=== PATIENT | male | born 2000 | race Caucasian/White ===

== ENCOUNTER 2024-11-23 00:24 | Emergency (ER) | payer SELFPAY ==
[2024-11-23] MEDS ORDERED: NA CHLORIDE 0.9% 1,000 ML ONE (01:05)
[2024-11-23] MEDS ORDERED: LORAZEPAM 1 MG TABLET ONE (01:07)
[2024-11-23 01:14] LABS: Absolute Lymphocytes (CBC) 2.0 K/uL (0.7-4.9); Hematocrit 50.6 % (39.6-49.0); Hemoglobin 17.5 g/dL (13.6-17.9); MCH 30.0 pg (27.0-35.0); MCHC 34.7 g/dL (32.0-36.0); MCV 86.5 fL (80-100); MPV 8.8 fL (7.6-11.3); Nucleated RBC Absolute Count 0.1 (0-0); Nucleated Red Blood Cells % 0.4 % (0-0); RBC Red Blood Cell Count 5.84 M/uL (4.33-5.43); White Blood Count 12.00 thou/uL (4.3-10.9)
[2024-11-23 01:36] LABS: METHAMPHETAM NEGATIVE (NEGATIVE); THC Cannibis NEGATIVE (NEGATIVE)
[2024-11-23 01:47] LABS: ALT/SGPT 30.0 U/L (16-61); AST/SGOT 37.0 U/L (15-37); Albumin 5.6 g/dL (3.4-5.0); Albumin/Globulin Ratio 1.5 (1.1-1.8); Alkaline Phosphatase 62.0 U/L (45-117); Anion Gap 18.3 mEq/L (5.0-15.0); BUN Blood Urea Nitrogen 18.0 mg/dL (7-18); Bilirubin Indirect, Calculated 0.9 mg/dL (0.2-0.8); Globulin 3.7 g/dL (2.3-3.5); Glucose Level 70.0 mg/dL (74-106); Lipase 16.0 U/L (13-75); Magnesium 2.4 mg/dL (1.6-2.4); Potassium 3.3 mEq/L (3.5-5.1); Troponin High Sensitivity 28.8 pg/mL (<58.9)
[2024-11-23] MEDS ORDERED: NA CHLORIDE 0.9% 2,000 ML ONE (03:20)
--- NOTE | 2024-11-23 04:17 | RAD REPORT ---
EXAM DESCRIPTION: CT of the head without contrast CLINICAL HISTORY: near syncope COMPARISON: None available TECHNIQUE: Axial CT of the head obtained from the skull apex to the skull base without contrast. This exam was performed according to our departmental dose-optimization program, which includes automated exposure control, adjustment of the mA and/or kV according to patient size and/or use of it erative reconstruction technique. FINDINGS: No acute intracranial hemorrhage identified. No mass, mass effect, shift of the midline, abnormal ext ra-axial fluid collection or CT evidence of acute ischemic change identified. The ventricular system is unremarkable. No acute abnormalities of the supratentorial white matter, basal ganglia, c erebellum, or brainstem. The visualized paranasal sinuses and the mastoids are relatively well aerated. No skull fracture id entified. Visualized orbits and globes are unremarkable. IMPRESSION: 1. No acute intracranial abnormality identified. Electronically signed by: Elkin Altamirano DO 11/23/2024 03:49 AM CDT 4ZDM Due to temporary technical issues with the PACS/[employer] reporting system, reports are being bryant d by the in-house radiologist without review as a courtesy to ensure prompt reporting the interpreting radiologist is fully responsible for the content of the report. Transcribed Date/Time: 11/23/2024 4:17 AM
--- NOTE | 2024-11-23 04:28 | RAD REPORT ---
EXAM DESCRIPTION: Chest Single View CLINICAL HISTORY: near syncope COMPARISON: None. FINDINGS: 1 view(s) of the chest. Tubes and lines: Leads overlie the chest. Cardiomediastinal silhouette: Normal size and contour. Lungs: No consolidation, pneumothorax, or pleural effusion. Bones: No acute osseous abnormality. Upper abdomen: No abnormality identified. IMPRESSION: 1. No acute pulmonary process identified. Electronically signed by: Elkin Altamirano DO 11/23/2024 03:50 AM CDT 4ZDM Due to temporary technical issues with the PACS/[employer] reporting system, reports are being bryant d by the in-house radiologist without review as a courtesy to ensure prompt reporting the interpreting radiologist is fully responsible for the content of the report. Transcribed Date/Time: 11/23/2024 4:28 AM
--- NOTE | 2024-11-23 04:38 | RAD REPORT ---
EXAM: CT Abdomen and Pelvis With Intravenous Contrast CLINICAL HISTORY: The patient is 24 years old and is Male; Abdominal pain. TECHNIQUE: Axial computed tomography images of the abdomen and pelvis with intravenous contrast. Sagittal and coronal reformatted images were created and reviewed. This CT exam was performed using one or more of the following dose reduction techniques: automated exposure control, adjustmen t of the mA and/or kV according to patient size, and/or use of iterative reconstruction technique. COMPARISON: No relevant prior studies available. FINDINGS: Artifacts: Motion artifact limits the evaluation. Lung bases: Unremarkable. No mass. No consolidation. ABDOMEN: Liver: Mild fatty liver. Gallbladder and bile ducts: Unremarkable. No calcified stones. No ductal dilation. Pancreas: No findings to suggest acute pancreatitis. No mass visualized. No ductal dilation. Spleen: Unremarkable. No splenomegaly. Adrenals: Unremarkable. No mass. Kidneys and ureters: Unremarkable. No solid mass. No hydronephrosis. Stomach and bowel: No bowel dilatation or obstruction. No definite bowel wall thickening. PELVIS: Appendix: The visualized appendix is normal. No pericecal inflammation to suggest acute appendici tis. Bladder: Unremarkable. No mass. Reproductive: Unremarkable as visualized. ABDOMEN and PELVIS: Intraperitoneal space: Unremarkable. No free air. No significant fluid collection. Bones/joints: Mild scoliosis versus positioning artifact. No acute fracture visualized. No dislocation. Soft tissues: Unremarkable. Vasculature: Unremarkable. No abdominal aortic aneurysm. Lymph nodes: No pathologically enlarged lymph nodes. IMPRESSION: 1. Motion artifact limits the evaluation. 2. No acute obstructive or inflammatory process identified. Normal appendix. Electronically signed by: Mackenzie Chilel MD 11/23/2024 04:35 AM CDT V2 Due to temporary technical issues with the PACS/[employer] reporting system, reports are being bryant d by the in-house radiologist without review as a courtesy to ensure prompt reporting the interpreting radiologist is fully responsible for the content of the report. Transcribed Date/Time: 11/23/2024 4:38 AM
[2024-11-23 06:35] LABS: Anion Gap 11.7 mEq/L (5.0-15.0); BUN Blood Urea Nitrogen 16.0 mg/dL (7-18); Glucose Level 81.0 mg/dL (74-106); Potassium 3.7 mEq/L (3.5-5.1)
--- NOTE | 2024-11-23 06:38 | ER ---
Nurse's Notes [facility] Name: Sophia Alex Age: 24 yrs Sex: Male : 2000 Arrival Date: 11/23/2024 Time: 00:24 Bed 5 Private MD: Diagnosis: Acute kidney failure, unspecified;Rhabdomyolysis Presentation: 11/23 00:27 Chief complaint: Pt report's abdominal that has been off and on 4 times through out the jb4 day. reports constipation, nausea, and vomiting. Coronavirus screen: At this time, the client does not indicate any symptoms associated with coronavirus-19. Ebola Screen: No symptoms or risks identified at this time. Initial Sepsis Screen: Does the patient meet any 2 criteria? No. Patient's initial sepsis screen is negative. Does the patient have a suspected source of infection? No. Patient's initial sepsis screen is negative. Risk Assessment: Do you want to hurt yourself or someone else? Patient reports no desire to harm self or others. Onset of symptoms was November 23, 2024. Transition of care: patient was not received from another setting of care. 00:27 Method Of Arrival: EMS: [facility] jb4 00:27 Acuity: LEVI 3 jb4 Historical: - Allergies: 00:31 No Known Allergies; jb4 - PMHx: 00:31 None; jb4 - PSHx: 00:31 None; jb4 - Immunization history:: Adult Immunizations. - Infectious Disease History:: Denies. - Social history:: Smoking status: unknown. Screenin:31 [facility] ED Fall Risk Assessment (Adult) History of falling in the last 3 months, jb4 including since admission No falls in past 3 months (0 pts) Confusion or Disorientation No (0 pts) Intoxicated or Sedated No (0 pts) Impaired Gait No (0 pts) Mobility Assist Device Used No (0 pt) Altered Elimination No (0 pt) Score/Fall Risk Level 0 - 2 = Low Risk Oriented to surroundings, Maintained a safe environment. Abuse screen: Denies threats or abuse. Nutritional screening: No deficits noted. Tuberculosis screening: No symptoms or risk factors identified. Assessment: 00:31 General: Appears in no apparent distress. uncomfortable, Behavior is calm, cooperative, jb4 appropriate for age. Pain: Complains of pain in right lower quadrant and left lower quadrant Pain does not radiate. Pain currently is 6 out of 10 on a pain scale. Quality of pain is described as crampy. Neuro: Level of Consciousness is awake, alert, obeys commands, Oriented to person, place, time, situation. Cardiovascular: Patient's skin is warm and dry. Respiratory: Airway is patent Respiratory effort is even, unlabored, Respiratory pattern is regular, symmetrical. GI: Abdomen is flat, non-distended, Last BM was November 22, 2024. at 12:00. Abd is soft X 4 quads Abd is non tender in right upper quadrant and left upper quadrant Abdomen is tender to palpation in right lower quadrant and left lower quadrant Reports lower abdominal pain, constipation, cramping, nausea, vomiting. Derm: Skin is intact, Skin is pink, warm \T\ dry. Musculoskeletal: Circulation, motion, and sensation intact. Range of motion: intact in all extremities. 01:35 General: Appears in no apparent distress. Behavior is calm, cooperative. Neuro: Level kd3 of Consciousness is awake, alert, obeys commands, Oriented to person, place, time, situation. Cardiovascular: Capillary refill < 3 seconds Patient's skin is warm and dry. Respiratory: Airway is patent Respiratory effort is even, unlabored, Respiratory pattern is regular, symmetrical. 04:00 Reassessment: Patient and/or family updated on plan of care and expected duration. Pain kd3 level reassessed. Patient is alert, oriented x 3, equal unlabored respirations, skin warm/dry/pink. Patient denies pain at this time. Vital Signs: 00:27 BP 157 / 72; Pulse 77; Resp 16; Temp 98.6(O); Pulse Ox 100% on R/A; Weight 72.57 kg; jb4 Height 5 ft. 10 in. (R); 01:37 BP 144 / 74; Pulse 75; Resp 19; Pulse Ox 98% ; kd3 03:59 BP 158 / 92; Pulse 76; Resp 16; Pulse Ox 97% on R/A; kd3 05:08 BP 143 / 91; Pulse 89; Resp 16; Pulse Ox 96% on R/A; kd3 06:23 BP 161 / 90; Pulse 80; Resp 19; Pulse Ox 98% on R/A; kd3 00:27 Body Mass Index 22.96 (72.57 kg, 177.8 cm) jb4 ED Course: 00:26 Patient arrived in ED. rv1 00:31 Triage completed. jb4 00:31 Arm band placed on right wrist. jb4 00:31 Patient has correct armband on for positive identification. Bed in low position. Call jb4 light in reach. Side rails up X 1. Provided Education on: plan of care. 00:33 Igor Curtis PA-C is PHCP. cp 00:34 Ilan Interiano DO is Attending Physician. cp 01:33 Jenny Hickman, CADEN is Primary Nurse. kd3 01:34 UDS Sent. kd3 01:35 XRAY Chest (1 view) In Process Unspecified. EDMS 01:36 CT Head Brain wo Cont In Process Unspecified. EDMS 01:36 CT Abd/Pelvis - IV Contrast Only In Process Unspecified. EDMS 01:53 IV discontinued, intact, bleeding controlled, No redness/swelling at site. Pressure mf3 dressing applied. 01:53 No provider procedures requiring assistance completed. mf3 Administered Medications: 01:08 Not Given (Other Intervention Used): ativan1 mg IVP once cp 01:11 Drug: NS 0.9% IV 1000 ml IV at 1000 ml once; to be given as a bolus over 60 minutes at6 Route: IV; Rate: 1000 ml; Site: right antecubital; 06:24 Follow up: IV Status: Completed infusion kd3 01:11 Drug: LORazepam PO 2 mg PO once Route: PO; at6 06:24 Follow up: Response: No adverse reaction; Anxiety decreased kd3 03:30 Drug: NS 0.9% IV 1000 ml IV at 1 bolus Per protocol; to be given as a bolus over 60 mf3 minutes Route: IV; Rate: 1 bolus; Site: right antecubital; 06:24 Follow up: IV Status: Completed infusion kd3 03:30 Drug: NS 0.9% IV 1000 ml IV at 1000 ml once; to be given as a bolus over 60 minutes mf3 Route: IV; Rate: 1000 ml; Site: right antecubital; 06:24 Follow up: IV Status: Completed infusion kd3 Medication: 00:31 VIS not applicable for this client. jb4 Outcome: :53 Discharged to home ambulatory, with family, mf3 01:53 Condition: stable 01:53 Discharge instructions given to patient, family, Instructed on discharge instructions, follow up and referral plans. Demonstrated understanding of instructions, follow-up care, 06:38 Discharge ordered by MD. rutledge 06:53 Patient left the ED. kd3 Signatures: Dispatcher [employer] EDMS Igor Curtis PA-C PA-C cp Bryson, James, RN RN jb4 Jenny Hickman, RN RN kd3 Pearl Casey rv1 Bailey Carrillo RN RN stacy3 Ilan Interiano DO DO tt7 Patricia Interiano RN RN at6
--- NOTE | 2024-11-23 06:38 | EDPHYS ---
Physician Documentation [facility] Name: Sophia Alex Age: 24 yrs Sex: Male : 2000 Arrival Date: 11/23/2024 Time: 00:24 Bed 5 Private MD: ED Physician Ilan Interiano HPI: 11/23 01:10 This 24 yrs old Male presents to ER via EMS with complaints of Near Syncope, Abdominal cp Pain. 01:10 The patient has experienced near-syncope, almost passed out, felt dizzy. Onset: The cp symptoms/episode began/occurred yesterday. Associated injury: The patient did not suffer any apparent associated injury. Associated signs and symptoms: Pertinent positives: abdominal pain, nausea, vomiting. Patient is a 24-year-old male with no significant past medical history who denies taking any prescribed medications, denies taking any [id number] meds and/or illegal drugs. Patient presents to the emergency department with a reported near syncopal episode while working yesterday. 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 Patient reports several episodes of vomiting and abdominal pain with mid back pain. Upon further questioning patient admits he has not slept for the last 3 days since being on the ship and in the past has had issues with insomnia. Reports she would take melatonin but this has not worked over the last 3 days. Historical: - Allergies: 00:31 No Known Allergies; jb4 - PMHx: 00:31 None; jb4 - PSHx: 00:31 None; jb4 - Immunization history:: Adult Immunizations. - Infectious Disease History:: Denies. - Social history:: Smoking status: unknown. ROS: 01:12 Constitutional: Negative for body aches, chills, fever, cp 01:12 Eyes: Positive for blurry vision, Negative for vision loss, cp 01:12 ENT: Negative for drainage from ear(s), ear pain, sore throat, difficulty swallowing, difficulty handling secretions, 01:12 Cardiovascular: Negative for chest pain, 01:12 Respiratory: Negative for cough, shortness of breath, wheezing, 01:12 Abdomen/GI: Positive for abdominal pain, nausea and vomiting, 01:12 Neuro: Positive for dizziness, near syncope, Negative for altered mental status, seizure activity, 01:12 All other systems are negative, Exam: 01:12 ECG was reviewed by the Attending Physician. cp 01:15 Constitutional: The patient appears in no acute distress, alert, awake, cp non-diaphoretic, non-toxic, well developed, well nourished, anxious, 01:15 Head/Face: Normocephalic, atraumatic. cp 01:15 Eyes: Periorbital structures: appear normal, Conjunctiva: normal, no exudate, no injection, Sclera: no appreciated abnormality, Lids and lashes: appear normal, 01:15 ENT: External ear(s): are unremarkable, Nose: is normal, Mouth: Lips: moist, Oral mucosa: moist, Posterior pharynx: Airway: no evidence of obstruction, patent, 01:15 Neck: ROM/movement: is normal, is supple, without pain, no range of motions limitations, 01:15 Chest/axilla: Inspection: normal, Palpation: is normal, no crepitus, no tenderness, 01:15 Cardiovascular: Rate: normal, Rhythm: irregular, Edema: is not appreciated, JVD: is not appreciated, 01:15 Respiratory: the patient does not display signs of respiratory distress, Respirations: normal, no use of accessory muscles, no retractions, labored breathing, is not present, Breath sounds: are clear throughout, no decreased breath sounds, no stridor, no wheezing, 01:15 Abdomen/GI: Inspection: abdomen appears normal, Bowel sounds: active, all quadrants, Palpation: soft, in all quadrants, mild abdominal tenderness, in the mid abdomen bilaterally, rebound tenderness, is not appreciated, involuntary guarding, is not appreciated, 01:15 Back: pain, that is mild, of the mid back area, ROM is normal, 01:15 Neuro: Orientation: to person, place \T\ time. Mentation: is normal, Motor: moves all fours, strength is normal, Sensation: is normal, 01:15 Psych: Behavior/mood is cooperative, Affect is animated, Judgement / Insight is normal. Delusions/hallucinations are not present. Vital Signs: 00:27 BP 157 / 72; Pulse 77; Resp 16; Temp 98.6(O); Pulse Ox 100% on R/A; Weight 72.57 kg; jb4 Height 5 ft. 10 in. (R); 01:37 BP 144 / 74; Pulse 75; Resp 19; Pulse Ox 98% ; kd3 03:59 BP 158 / 92; Pulse 76; Resp 16; Pulse Ox 97% on R/A; kd3 05:08 BP 143 / 91; Pulse 89; Resp 16; Pulse Ox 96% on R/A; kd3 06:23 BP 161 / 90; Pulse 80; Resp 19; Pulse Ox 98% on R/A; kd3 00:27 Body Mass Index 22.96 (72.57 kg, 177.8 cm) jb4 MDM: 00:34 Medical Screening Exam initiated cp 02:00 Differential Diagnosis: cardiac arrhythmia, illegal drug use, electrolyte abnormality, cp dehydration, kidney failure. 03:15 Data reviewed: vital signs, nurses notes, lab test result(s), EKG, I have discussed the cp patient's presentation/case with the attending Emergency Department Physician;. 03:15 Response to treatment: the patient's symptoms have mildly improved after treatment. cp Awaiting: CT scan results. Transition of care: After a detail discussion of the patient's case, care is transferred to [facility]. 11/23 00:50 Order name: Basic Metabolic Panel; Complete Time: 03:07 cp 11/23 03:07 Interpretation: Normal except: NA 135; K 3.3; CO2 20; ANION GAP 18.3; GLUC 70; CRE cp 1.46; GFR 68. 11/23 00:50 Order name: CBC with Diff; Complete Time: 03:07 cp 11/23 03:08 Interpretation: Normal except: WBC 12.00; RBC 5.84; HCT 50.6; NEUT A 8.7. cp 11/23 00:50 Order name: LFT's; Complete Time: 03:07 cp 11/23 03:08 Interpretation: Normal except: BILIT 1.1; IBILI, CALC 0.9; TP 9.3; ALB 5.6; GLOB 3.7. cp 11/23 00:50 Order name: Magnesium; Complete Time: 03:07 cp 11/23 00:50 Order name: Troponin HS; Complete Time: 03:07 cp 11/23 00:50 Order name: UDS; Complete Time: 03:07 cp 11/23 01:14 Order name: Creatine Phosphokinase; Complete Time: 03:07 EDMS 11/23 03:08 Interpretation: Abnormal: CPK 1499. cp 11/23 01:14 Order name: Lipase; Complete Time: 03:07 EDMS 11/23 04:51 Order name: BMP; Complete Time: 06:36 tt7 11/23 04:52 Order name: CPK; Complete Time: 06:36 tt7 11/23 00:50 Order name: XRAY Chest (1 view); Complete Time: 04:49 cp 11/23 00:50 Order name: CT Head Brain wo Cont; Complete Time: 04:49 cp 11/23 01:09 Order name: CT Abd/Pelvis - IV Contrast Only; Complete Time: 04:49 cp 11/23 00:50 Order name: EKG; Complete Time: 00:50 cp 11/23 00:50 Order name: Cardiac monitoring; Complete Time: 01:34 cp 11/23 00:50 Order name: EKG - Nurse/Tech; Complete Time: 01:34 cp 11/23 00:50 Order name: IV Saline Lock; Complete Time: 00:56 cp 11/23 00:50 Order name: Labs collected and sent; Complete Time: 00:56 cp 11/23 00:50 Order name: O2 Per Protocol; Complete Time: 00:56 cp 11/23 00:50 Order name: O2 Sat Monitoring; Complete Time: 00:56 cp EC:12 Rate is 63 beats/min. Rhythm is irregular. DC interval is normal. QRS interval is cp prolonged at 131 msec. QT interval is normal. T waves are Inverted in lead aVR. Interpreted by me. Reviewed by me. Administered Medications: 01:08 Not Given (Other Intervention Used): ativan1 mg IVP once cp 01:11 Drug: NS 0.9% IV 1000 ml IV at 1000 ml once; to be given as a bolus over 60 minutes at6 Route: IV; Rate: 1000 ml; Site: right antecubital; 06:24 Follow up: IV Status: Completed infusion kd3 01:11 Drug: LORazepam PO 2 mg PO once Route: PO; at6 06:24 Follow up: Response: No adverse reaction; Anxiety decreased kd3 03:30 Drug: NS 0.9% IV 1000 ml IV at 1 bolus Per protocol; to be given as a bolus over 60 mf3 minutes Route: IV; Rate: 1 bolus; Site: right antecubital; 06:24 Follow up: IV Status: Completed infusion kd3 03:30 Drug: NS 0.9% IV 1000 ml IV at 1000 ml once; to be given as a bolus over 60 minutes mf3 Route: IV; Rate: 1000 ml; Site: right antecubital; 06:24 Follow up: IV Status: Completed infusion kd3 Disposition: 19:11 Co-signature as Attending Physician, Ilan Interiano DO PA/[employer]'s history reviewed, tt7 patient interviewed, and examined. I agree with assessment and care plan and confirm the diagnosis (es) above. Disposition Summary: 11/23/24 06:38 Discharge Ordered Notes: Location: Home tt7 Problem: new tt7 Symptoms: have improved tt7 Condition: Stable tt7 Diagnosis - Acute kidney failure, unspecified tt7 - Rhabdomyolysis tt7 Followup: tt7 - With: Emergency Department - When: As needed - Reason: Followup: tt7 - With: Private Physician - When: 1 - 2 days - Reason: Recheck today's complaints, Re-evaluation by your physician Discharge Instructions: - Discharge Summary Sheet tt7 - Rhabdomyolysis tt7 - Acute Kidney Injury, Adult tt7 Forms: - Work release form eb - Medication Reconciliation Form tt7 - Antibiotic Education tt7 - Prescription Opioid Use tt7 - Patient Portal Instructions tt7 - Leadership Thank You Letter tt7 Signatures: Dispatcher [employer] EDMS Igro Curtis PA-C PA-C cp Bryson, James RN RN jb4 Jenny Hickman RN RN kd3 Bailey Carrillo RN RN mf3 Ilan Interiano DO DO tt7 Patricia Interiano RN RN at6 Corrections: (The following items were deleted from the chart) 00:50 00:50 Head Brain Wo Cont+CT.RAD.BRZ ordered. EDMS EDMS
[2024-11-23 08:32] VITALS: TEMP 98.6
[2024-11-23 08:37] VITALS: BP 161/90; O2SAT 98
== END 2024-11-23 06:53 | disposition home or self-care (01) ==
LOC: ER 00:24
DX: M62.82 Rhabdomyolysis (principal); N17.9 Acute kidney failure, unspecified
CPT/HCPCS: 36415; 70450; 71045; 74177; 80048; 80076; 80307; 82550; 83690; 83735; 84484; 85025; 93005; 96360; 96361; 99284; J7030; Q9967